=== PATIENT | female | born 1960 | race Caucasian/White ===

== ENCOUNTER → 2024-09-06 | Outpatient (CLI) | payer OTHER, SELFPAY ==
--- NOTE | 2024-09-06 15:05 | ECHOD_ITS ---
Reason For Study Reason For Study: Arrhythmia Procedure This was a 2D Doppler, Color Flow transthoracic echocardiogram. Myocardial strain analysis was performed in this exam to aid in the assessment of cardiac function. Exam performed in department. Left Ventricle Normal LV size. The global longitudinal strain = -21.0 % (normal). The left ventricular ejection fraction is 60 %. Stage 1 diastolic dysfunction. No regional wall motion abnormalities noted. Right Ventricle Normal RV size. Normal systolic function. Atria Normal left atrium. Normal right atrium. Mitral Valve Mild mitral valve prolapse. Mild (1+) eccentric mitral valve insufficiency. Tricuspid Valve Normal tricuspid valve. Mild tricuspid valve insufficiency. Pulmonary artery systolic pressure is 32 mmHg. Aortic Valve Trisinus/trileaflet aortic valve. Pulmonic Valve Normal pulmonic valve. Great Vessels Normal aortic root. The pulmonary artery is normal size. Inferior vena cava collapse with respiration. Pericardium/Pleural No pericardial effusion. MMode/2D Measurements & Calculations LVIDd: 4.3 cm IVSd: 0.83 cm Ao root diam: 2.9 cm LVIDs: 2.7 cm LVPWd: 0.76 cm RVDd: 3.3 cm FS: 37.6 % LAV(MOD-bp): 34.1 ml LVAd ap4: 25.1 cm2 SV(MOD-sp4): 40.4 ml LAV(MOD-bp) Indexed: 20.2 ml/m2 LVLd ap4: 7.8 cm SI(MOD-sp4): 23.9 ml/m2 LAV(MOD-sp2): 23.3 ml EDV(MOD-sp4): 67.6 ml LAV(MOD-sp4): 35.2 ml EDV(sp4-el): 68.3 ml LVAs ap4: 14.1 cm2 LVLs ap4: 6.4 cm ESV(MOD-sp4): 27.2 ml ESV(sp4-el): 26.4 ml EF(MOD-sp4): 59.7 % EF(sp4-el): 61.3 % SV(sp4-el): 41.9 ml LA A4 area: 15.3 cm2 LA dimension(2D): 2.9 cm RA A4 area: 11.8 cm2 TAPSE: 1.7 cm Time Measurements MV dec time: 0.27 sec Doppler Measurements & Calculations MV E max rusty: 48.3 cm/sec Lat Peak E' Rusty: 10.5 cm/sec Med Peak E' Rusty: 9.7 cm/sec MV A max rusty: 54.1 cm/sec E/E' lat: 4.6 E/E' med: 5.0 MV E/A: 0.89 MV V2 max: 65.2 cm/sec MV P1/2t max rusty: 49.6 cm/sec Ao V2 max: 103.3 cm/sec MV max P.7 mmHg MV P1/2t: 83.8 msec Ao max P.3 mmHg MV V2 mean: 35.6 cm/sec Ao V2 mean: 73.9 cm/sec MV mean P.60 mmHg MV dec slope: 173.4 cm/sec2 Ao mean P.5 mmHg MV V2 VTI: 14.5 cm MVA(P1/2t): 2.6 cm2 Ao V2 VTI: 20.9 cm AV (velocity ratio): 0.94 LV V1 max: 92.0 cm/sec PA V2 max: 70.1 cm/sec TR max rusty: 269.6 cm/sec LV V1 max P.4 mmHg TR max P.1 mmHg LV V1 mean P.8 mmHg LV V1 mean: 61.9 cm/sec LV V1 VTI: 19.6 cm ECHO/Echo Complete Interpretation Summary Normal LV size. The global longitudinal strain = -21.0 % (normal). The left ventricular ejection fraction is 60 %. Stage 1 diastolic dysfunction. Pulmonary artery systolic pressure is 32 mmHg. Ordering Physician: Jay Rodriguez Referring Physician: Jay Rodriguez Performed By: Todd Casas RCS
== END | disposition home or self-care (01) ==
PROVIDERS: Referring Provider Internal Medicine Cardiovascular Disease; Visit Provider Internal Medicine Cardiovascular Disease
DX: I47.10 Supraventricular tachycardia, unspecified (principal)
CPT/HCPCS: 93306